=== PATIENT | male | born 1960 | race Caucasian/White ===

== ENCOUNTER 2023-03-17 10:36 | Emergency (ER) | payer OTHER, SELFPAY ==
--- NOTE | 2023-03-17 10:41 | ECG_ITS ---
[facility] Test Date: 2023-03-17 Pat Name: SINHDU JEAN Department: Room: - Gender: Male [employer]: : 1960 Requested By: Spencer Mcnamara Order Number: [id number] Reading MD: BETHANY HURLEY Measurements Intervals [place] Rate: 65 P: 62 KS: 241 QRS: -10 QRSD: 93 T: 55 QT: 425 QTc: 445 Interpretive Statements SINUS RHYTHM WITH FIRST DEGREE AV BLOCK WARNING: DATA QUALITY MAY AFFECT INTERPRETATION No previous ECG available for comparison Electronically Signed On 03-19-2023 15:34:03 EDT by BETHANY HURLEY
[2023-03-17 10:45] VITALS: BP 143/92; PULSE 65; RESP 18; TEMP 36.6; O2SAT 98; BMI 54.4
--- NOTE | 2023-03-17 10:58 | PC.NURSE ---
Pt from [facility]. Pt uses cocaine last was yesterday AM. Pt states after getting to ER from recovery center he feels better. no longer dizzy and no longer nauseas. Per squad his FSBS was 57 they gave oral glucose and it went up to 118. Pt states he feels fine now just really tired.
--- NOTE | 2023-03-17 11:14 | ED_ITS ---
HPI - General Adult General Chief complaint: Chest Pain Stated complaint: Light headed and dizzy with nausea Time Seen by Provider: 03/17/23 11:07 Source: patient Mode of arrival: ambulance Limitations: no limitations History of Present Illness HPI narrative: cc - dizzy with elevated BP Patient sent by EMS from [facility]. He last used cocaine 2 days ago. He had been at [facility] less than 24 hours. His BP elevated over 200 systolic. They apparently gave him Clonidine 0.1mg orally and his BP remained elevated and he had nausea without vomiting. They called EMS. By the time EMS arrived, the patient's BP had normalized. He was transported to our ED. On arrival he has no complaint. His dizziness and nausea has subsided. Related Data Home Medications Medication Instructions Recorded Confirmed clonidine HCl 0.1 mg tablet 0.1 mg PO Q6H 03/17/23 03/17/23 diphenhydramine HCl 25 mg tablet 25 mg PO .hs PRN sleep 03/17/23 03/17/23 (Benadryl Allergy) hydroxyzine pamoate 25 mg capsule 25 mg PO Q6H PRN itching 03/17/23 03/17/23 (Vistaril) ibuprofen 400 mg tablet 400 mg PO Q6H 03/17/23 03/17/23 melatonin 10 mg capsule 10 mg PO QDAY 03/17/23 03/17/23 ondansetron HCl 8 mg tablet 8 mg PO .every 6 hr 03/17/23 03/17/23 Allergies Allergy/AdvReac Type Severity Reaction Status Date / Time iv dye Allergy Severe Uncoded 03/17/23 10:44 PFSH PFSH Social History Smoking status: Former smoker Exam Narrative: Exam Narrative: Nurses notes and vital signs reviewed and patient is not hypoxic. afebrile General: Well-appearing and in no apparent distress. Skin: Warm, dry, no pallor noted. No rash. Head: Normocephalic, atraumatic. Eye: Pupils are equal, round and EOMI. No scleral icterus. Ears, Nose, Mouth, and Throat: Oral mucosa is moist Cardiovascular: Regular Rate and Rhythm without murmur, gallop or rub. Respiratory: No accessory muscle use or respiratory distress. Lungs are clear to auscultation, no wheezing, rales or rhonchi Musculoskeletal: normal ROM, no calf or popliteal tenderness, no lower extremity edema/swelling GI: Abdomen is soft, non-distended. Normal bowel sounds. No tenderness to palpation. No rebound, guarding, or rigidity noted. Neurological: A&O x4. No cranial nerve dysfunction observed. No truncal ataxia. Moves all extremities. Sensation intact. Psychiatric: Cooperative and interactive. Normal mood and affect. Constitutional: Vital Signs, click to edit/add: Vital Signs - 24 hr 03/17/23 10:45 Temperature 98 F Pulse Rate [Monito r] 65 Respiratory Rate 18 Blood Pressure [Le ft Arm] 143/92 H Pulse Oximetry 98 Oxygen Delivery Me thod Room Air Course Vital Signs Vital signs: Vital Signs Temperature 98 F 03/17/23 10:45 Pulse Rate 65 03/17/23 10:45 Respiratory Rate 18 03/17/23 10:45 Blood Pressure 143/92 H 03/17/23 10:45 Pulse Oximetry 98 03/17/23 10:45 Oxygen Delivery Method Room Air 03/17/23 10:45 Temperature 98 F 03/17/23 10:45 Pulse Rate 65 03/17/23 10:45 Respiratory Rate 18 03/17/23 10:45 Blood Pressure 143/92 H 03/17/23 10:45 Pulse Oximetry 98 03/17/23 10:45 Oxygen Delivery Method Room Air 03/17/23 10:45 Medical Decision Making MDM Narrative Medical decision making narrative: Patient's BP improved following Clonidine use at the rehab facility. he has no symptoms at this time. EKG obtained and is without ST elevation or deep ischemic changes. Patient's exam is unremarkable. He was discharged back to [facility]. ECG Data Interpretation: EKG interpretation: Emergency Department physician interpretation. Normal sinus rhythm at 65bpm. first-degree AV block. Normal axis and no ST segment elevation or depression. Discharge Plan Discharge Chief Complaint: Chest Pain Clinical Impression: Hypertension Patient Disposition: Home, Self-Care Time of Disposition Decision: 11:20 Condition: Good Prescriptions: No Action diphenhydramine HCl [Benadryl Allergy] 25 mg tablet 25 mg PO .hs PRN (Reason: sleep) clonidine HCl 0.1 mg tablet 0.1 mg PO Q6H ibuprofen 400 mg tablet 400 mg PO Q6H melatonin 10 mg capsule 10 mg PO QDAY hydroxyzine pamoate [Vistaril] 25 mg capsule 25 mg PO Q6H PRN (Reason: itching) ondansetron HCl 8 mg tablet 8 mg PO .every 6 hr Rx Instructions: 1st dose 1-2 hr before radiation Stand Alone Forms: Portal Instructions
[2023-03-17 11:41] VITALS: BP 134/88; PULSE 68; RESP 18; O2SAT 98
[2023-03-17 14:52] LABS: Glucometer 101 mg/dL (74-106)
== END 2023-03-17 12:45 | disposition home or self-care (01) ==
PROVIDERS: Emergency Provider Emergency Medicine
DX: I10 Essential (primary) hypertension (principal); Z87.891 Personal history of nicotine dependence; Z79.899 Other long term (current) drug therapy
CPT/HCPCS: 36415; 36416; 82948; 93005; 99283